=== PATIENT | male | born 2000 | race Hispanic/Latino ===

== ENCOUNTER 2019-04-30 08:35 | Emergency (ER) | payer OTHER, SELFPAY ==
--- NOTE | 2019-04-30 10:08 | EDPHYS ---
Physician Documentation [facility] Name: Fuentes Ochoa Age: 18 yrs Sex: Male : 2000 Arrival Date: 04/30/2019 Time: 08:38 Bed 7 Private MD: ED Physician Eric Forbes HPI: 04/30 09:46 This 18 yrs old Male presents to ER via Ambulatory with complaints of Shoulder kb Pain. 09:46 The patient or guardian complains of decreased range of motion, pain, that is acute. kb right shoulder. Context: The problem was sustained outdoors, resulted from "I was play fighting and swung too hard.", The patient experiences decreased range of motion, when attempts to raise arm, The patient reports no obvious deformity. Onset: The symptoms/episode began/occurred yesterday. Modifying factors: the symptoms are alleviated by nothing. The symptoms are aggravated by movement. Associated signs and symptoms: The patient has no apparent associated signs or symptoms. Severity of symptoms: At their worst the symptoms were moderate, in the emergency department the symptoms are unchanged. Treatment prior to arrival includes: no previous treatment. The patient has not experienced similar symptoms in the past. The patient has not recently seen a physician. Historical: - Allergies: 09:01 No Known Allergies; ph - Home Meds: 09:01 None [Active]; ph - PMHx: 09: None; ph - PSHx: 09:01 None; ph - Immunization history:: Adult Immunizations up to date. - Social history:: Smoking status: Patient uses tobacco products, smokes one-half pack cigarettes per day. - Ebola Screening: : No symptoms or risks identified at this time. ROS: 09:43 Constitutional: Negative for fever, chills, and weight loss, Cardiovascular: Negative kb for chest pain, palpitations, and edema, Respiratory: Negative for shortness of breath, cough, wheezing, and pleuritic chest pain, Abdomen/GI: Negative for abdominal pain, nausea, vomiting, diarrhea, and constipation, Back: Negative for injury and pain, : Negative for injury, bleeding, discharge, and swelling, Skin: Negative for injury, rash, and discoloration, Neuro: Negative for headache, weakness, numbness, tingling, and seizure. 09:43 MS/extremity: Positive for decreased range of motion, pain, of the anterior aspect of right shoulder. Exam: 09:43 Constitutional: This is a well developed, well nourished patient who is awake, alert, kb and in no acute distress. Head/Face: Normocephalic, atraumatic. Chest/axilla: Normal chest wall appearance and motion. Nontender with no deformity. No lesions are appreciated. Cardiovascular: Regular rate and rhythm with a normal S1 and S2. No gallops, murmurs, or rubs. Normal PMI, no JVD. No pulse deficits. Respiratory: Lungs have equal breath sounds bilaterally, clear to auscultation and percussion. No rales, rhonchi or wheezes noted. No increased work of breathing, no retractions or nasal flaring. Abdomen/GI: Soft, non-tender, with normal bowel sounds. No distension or tympany. No guarding or rebound. No evidence of tenderness throughout. Skin: Warm, dry with normal turgor. Normal color with no rashes, no lesions, and no evidence of cellulitis. Neuro: Awake and alert, GCS 15, oriented to person, place, time, and situation. Cranial nerves II-XII grossly intact. Motor strength 5/5 in all extremities. Sensory grossly intact. Cerebellar exam normal. Normal gait. 09:43 Musculoskeletal/extremity: Extremities: grossly normal except: noted in the anterior aspect of right shoulder: decreased ROM, pain, noted in the right upper arm: tenderness, ROM: limited active range of motion due to pain, in the anterior aspect of right shoulder, Circulation is intact in all extremities. Sensation intact. Vital Signs: 08:58 BP 164 / 93; Pulse 78; Resp 18; Temp 98.6; Pulse Ox 98% on R/A; Weight 124.74 kg; ph Height 5 ft. 6 in. (167.64 cm); Pain 10/10; 10:00 BP 147 / 89; Pulse 74; Resp 18; Temp 97.8; Pulse Ox 99% on R/A; ph 08:58 Body Mass Index 44.39 (124.74 kg, 167.64 cm) ph MDM: 08:44 Patient medically screened. kb 09:45 Data reviewed: vital signs, nurses notes. Data interpreted: Pulse oximetry: on room air kb is 98 %. Interpretation: normal. Test interpretation: by ED physician or midlevel provider: plain radiologic studies, neg. Counseling: I had a detailed discussion with the patient and/or guardian regarding: the historical points, exam findings, and any diagnostic results supporting the discharge/admit diagnosis, radiology results, the need for outpatient follow up, a family practitioner, to return to the emergency department if symptoms worsen or persist or if there are any questions or concerns that arise at home. 04/30 08:46 Order name: Humerus Right XRAY kb 04/30 08:46 Order name: Shoulder Right (2 View) XRAY kb 04/30 10:08 Order name: Sling; Complete Time: 10:16 kb Administered Medications: No medications were administered Disposition: 04/30/19 10:07 Discharged to Home. Impression: Pain in right shoulder. - Condition is Stable. - Discharge Instructions: Shoulder Pain, [id number]. - Prescriptions for Cyclobenzaprine 10 mg Oral Tablet - take 1 tablet by ORAL route every 8 hours As needed; 21 tablet. - Medication Reconciliation Form, Thank You Letter, Antibiotic Education, Prescription Opioid Use form. - Follow up: Emergency Department; When: As needed; Reason: Worsening of condition. Follow up: Private Physician; When: 2 - 3 days; Reason: Recheck today's complaints, Continuance of care, Re-evaluation by your physician. Addendum: 05/04/2019 02:10 Co-signature as Attending Physician, Eric Forbes MD. m a2 Signatures: Dispatcher [employer] EDME Akila Ortiz, DIDI-C DIDI-Naomi Martin RN RN Eric Davila MD MD va2 Corrections: (The following items were deleted from the chart) 04/30 09:45 09:43 Musculoskeletal/extremity: Extremities: grossly normal except: noted in the kb anterior aspect of right shoulder: decreased ROM, pain, noted in the right upper arm: tenderness, kb 10:25 10:07 04/30/2019 10:07 Discharged to Home. Impression: Pain in right shoulder. ph Condition is Stable. Forms are Medication Reconciliation Form, Thank You Letter, Antibiotic Education, Prescription Opioid Use. Follow up: Emergency Department; When: As needed; Reason: Worsening of condition. Follow up: Private Physician; When: 2 - 3 days; Reason: Recheck today's complaints, Continuance of care, Re-evaluation by your physician. kb
--- NOTE | 2019-04-30 10:08 | ER ---
Nurse's Notes [facility] Name: Fuentes Ochoa Age: 18 yrs Sex: Male : 2000 Arrival Date: 04/30/2019 Time: 08:38 Bed 7 Private MD: Diagnosis: Pain in right shoulder Presentation: 04/30 08:49 Presenting complaint: Patient states: " I was "play fighting" last night and I guess I ph was swinging my arm too much. When I woke up this morning my shoulder was really sore." C/O pain to R shoulder, CMS intact, reports limited ROM. Transition of care: patient was not received from another setting of care. Onset of symptoms was April 30, 2019. Risk Assessment: Do you want to hurt yourself or someone else? Patient reports no desire to harm self or others. Initial Sepsis Screen: Does the patient meet any 2 criteria? No. Patient's initial sepsis screen is negative. Does the patient have a suspected source of infection? No. Patient's initial sepsis screen is negative. Care prior to arrival: Medication(s) given: Tylenol, 1000 mg, 30 min DRAWER WAXER. 08:49 Method Of Arrival: Ambulatory ph 08:49 Acuity: NAYELY 4 ph Historical: - Allergies: 09:01 No Known Allergies; ph - Home Meds: 09:01 None [Active]; ph - PMHx: 09:01 None; ph - PSHx: 09:01 None; ph - Immunization history:: Adult Immunizations up to date. - Social history:: Smoking status: Patient uses tobacco products, smokes one-half pack cigarettes per day. - Ebola Screening: : No symptoms or risks identified at this time. Screenin:03 Abuse screen: Denies threats or abuse. Denies injuries from another. Nutritional ph screening: No deficits noted. Tuberculosis screening: No symptoms or risk factors identified. Fall Risk None identified. Assessment: 09:15 General: Appears in no apparent distress. comfortable, obese, well groomed, Behavior is ph calm, cooperative, appropriate for age. Pain: Complains of pain in right shoulder and right upper arm Pain currently is 10 out of 10 on a pain scale. Neuro: Level of Consciousness is awake, alert, obeys commands, Oriented to person, place, time, situation. Cardiovascular: Capillary refill < 3 seconds in bilateral fingers Patient's skin is warm and dry. Pulses are palpable in right radial artery and left radial artery. Respiratory: Airway is patent Respiratory effort is even, unlabored, Respiratory pattern is regular, symmetrical. Derm: Skin is intact, is healthy with good turgor, Skin is pink, warm \\T\\ dry. Musculoskeletal: Circulation, motion, and sensation intact. Range of motion: intact in all extremities, Swelling absent no deformity noted. Vital Signs: 08:58 BP 164 / 93; Pulse 78; Resp 18; Temp 98.6; Pulse Ox 98% on R/A; Weight 124.74 kg; ph Height 5 ft. 6 in. (167.64 cm); Pain 10/10; 10:00 BP 147 / 89; Pulse 74; Resp 18; Temp 97.8; Pulse Ox 99% on R/A; ph 08:58 Body Mass Index 44.39 (124.74 kg, 167.64 cm) ph ED Course: 08:38 Patient arrived in ED. rg4 08:44 Akila Ortiz FNP-C is PHCP. kb 08:44 Eric Forbes MD is Attending Physician. kb 08:57 Triage completed. ph 09:02 Arm band placed on Patient placed in an exam room, on a stretcher, on pulse oximetry. ph 09:03 Patient has correct armband on for positive identification. Pulse ox on. NIBP on. Door ph closed. Noise minimized. Head of bed elevated. 09:34 X-ray completed. Portable x-ray completed in exam room. tm4 09:46 Humerus Right XRAY In Process Unspecified. EDMS 09:46 Shoulder Right (2 View) XRAY In Process Unspecified. EDMS 10:14 Naomi Hou, RN is Primary Nurse. ph 10:23 No provider procedures requiring assistance completed. Patient did not have IV access ph during this emergency room visit. Sling applied to right arm. Administered Medications: No medications were administered Outcome: 10:07 Discharge ordered by . kb 10:25 Patient left the ED. ph 10:25 Discharged to home ambulatory, with family. ph 10:25 Condition: good 10:25 Discharge instructions given to patient, family, Instructed on discharge instructions, follow up and referral plans. no drinking with medication, no driving heavy equipment, medication usage, Demonstrated understanding of instructions, follow-up care, medications, Prescriptions given X 1. Signatures: Dispatcher [employer] Akila Noguera, ISMAELC LEATHER FITTER-Mary Garcia tm4 Naomi Hou RN RN Marilu Pardo rg4
[2019-04-30 10:37] VITALS: BP 164/93; TEMP 98.6; O2SAT 98
--- NOTE | 2019-04-30 10:49 | RAD REPORT ---
EXAM DESCRIPTION: Shoulder Right 2 View - 04/30/2019 9:46 am COMPARISON: Right shoulder pain following trauma TECHNIQUE: Internal and external rotation views of the right shoulder were obtained. FINDINGS: There is no fracture or dislocation. AC joint is normal in appearance. No acute or suspic ious findings. IMPRESSION: Negative two-view right shoulder examination.
--- NOTE | 2019-04-30 10:50 | RAD REPORT ---
EXAM DESCRIPTION: RAD - Humerus Right - 04/30/2019 9:46 am CLINICAL HISTORY: Right arm pain following trauma COMPARISON: None. FINDINGS: No fracture is identified. There is no dislocation or periosteal reaction noted. No foreig n body or other soft tissue abnormality. IMPRESSION: Negative right humerus examination.
== END 2019-04-30 10:25 | disposition home or self-care (01) ==
LOC: ER 08:35
DX: M25.511 Pain in right shoulder (principal); F17.210 Nicotine dependence, cigarettes, uncomplicated
CPT/HCPCS: 99284

== ENCOUNTER 2021-11-07 17:23 | Emergency (ER) | payer SELFPAY ==
--- OUTSIDE RECORDS SUMMARY | 2021-11-07 17:26 | XMS REPORT | Continuity of Care Document ---
:2000 Author Organization [facility] t Address [facility] [address]. Gupta [address] [place] [id number] Care Team Providers Name Role Phone Jihan Buckner Primary Care Physician Nasir GILMORE Attending Clinician Unavailable Nasir Ewing Attending Clinician Problems Condition Condition Condition Status Onset Resolution Last Treating Co mments Source Name Details Category Date Date Treatment Clinician Date No known No known Disease Unive rs active active ity of problems problems [facility] Allergies, Adverse Reactions, Alerts Allergy Allergy Status Severity Reaction(s) Onset Inactive Treating Comm ents Source Name Type Date Date Clinician NO KNOWN Drug Active Univers ALLERGIE Class ity of S [facility] Social History Social Habit Start Date Stop Date Quantity Comments Source Exposure to Not sure [facility] SARS-CoV-2 (event) Medica l Branch Alcohol intake 2014-07-23 2014-07-23 [facility] 00:00:00 00:00:00 [facility] Sex Assigned At [birth year] [facility] 00:00:00 00:00:00 [facility] Smoking Status Start Date Stop Date Source Never smoker [facility] Medications Ordered Filled Start Stop Current Ordering Indication Dosage Frequency Signature Comments Components Source Medication Medication Date Date Medication? Clinician (SIG) Name Name lidocaine 2020-10- No 5mL 5 mL, Univer s 1% 11-20 Infiltrati ity of (XYLOCAINE) 02:30: 01:25 on, ONCE, [place] 10 mg/mL (1 00 :00 1 dose, On Me dical %) Fri Branch injection 5 09/19/ mL at 2030, JOHN cephALEXin 2020-10- Yes [id number] 500mg Take 1 Univers 500 mg 11-19 [id number] capsule by ity of capsule 00:00: 05:59 mouth 4 [place] 00 :00 (four) Medical times [place] daily for 5 days. amLODIPine 2013-10 Yes TAKE 1 Unive rs (NORVASC) 2-16 TABLET BY ity o f 2.5 mg 00:00: MOUTH [place] tablet 00 EVERY DAY Medical Branch ALBUTEROL Yes Inhale. Unive rs INHALE 07-23 ity of 09:52: [place] 54 Medical Branch tretinoin Yes [id number] Apply to Univers (RETIN-A) 07-23 affected ity of 0.05 % 00:00: area(s) at [place] cream 00 bedtime. Medical Branch tretinoin Yes [id number] Apply to Univers (RETIN-A) 05-21 affected ity of 0.025 % 00:00: area(s) at [facility] s cream 00 bedtime. [facility] Immunizations Ordered Filled Immunization Date Status Comments [facility] e Immunization Name Name Td 2021-09-19 Completed University of 00:00:00 [facility] Vital Signs Vital Name Observation Time Observation Value Comments Source Systolic blood 2021-09-20 01:14:00 183 mm[Hg] Univer sity of pressure [facility] Diastolic blood 2021-09-20 01:14:00 80 mm[Hg] [facility] ity [facility] Heart rate 2021-09-20 01:14:00 75 /min [facility] Body temperature 2021-09-20 01:14:00 37.5 [facility] Respiratory rate 2021-09-20 01:14:00 18 /min [facility] Body height 2021-09-20 01:14:00 167.6 cm [facility] Body weight 2021-09-20 01:14:00 127.007 kg [facility] BMI 2021-09-20 01:14:00 45.19 kg/m2 [facility] Oxygen saturation in 2021-09-20 01:14:00 100 /min [facility] Arterial blood by [facility] Pulse oximetry Branch Procedures Procedure Date / Time Performed Performing Clinician Javier christianson NOTICE OF PRIVACY 2021-09-20 01:25:29 Doctor Unassigned, No Univ [facility] PRACTICES Name Medical Branch CONSENT/REFUSAL FOR 2021-09-20 00:47:44 [facility] Name [facility] Branch TREATMENT Encounters Start End Encounter Admission Attending Care Care Encounter Source Date/Time Date/Time Type Type Clinicians Facility Department ID 2021-09-19 2021-09-19 Emergency X [facility] ERT [id number] Univers 19:20:00 20:45:00 JOSSIE paige of [facility] 2021-09-19 2021-09-19 Emergency [facility] [id number] Univers 19:20:00 20:45:00 Jossie SANTOYO [id number] i ty of [place] [id number] [facility] [id number] [facility] 084 Branch Results This patient has no known results.
[2021-11-07] MEDS ORDERED: BUPIVACAINE 0.5% PF 10 ML VIAL ONE (18:40)
[2021-11-07] MEDS ORDERED: LIDOCAINE 1% MPF 5 ML VIAL ONE (18:41)
--- NOTE | 2021-11-07 20:29 | RAD REPORT ---
EXAM DESCRIPTION: CR - Finger-Thumb Left - 11/07/2021 8:21 pm CLINICAL HISTORY: Laceration FINDINGS: No fracture or dislocation seen. A radiopaque foreign body is not visualized
--- NOTE | 2021-11-07 20:54 | ER ---
Nurse's Notes [facility] Name: Fuentes Ochoa Age: 21 yrs Sex: Male : 2000 Arrival Date: 11/07/2021 Time: 17:26 Bed 10 Private MD: Diagnosis: Laceration without foreign body of left middle finger without damage to nail Presentation: 11/07 17:47 Chief complaint: Patient states: cutting vegetables at work and cut Left middle finger vg1 with a knife. Coronavirus screen: Vaccine status: Patient reports receiving the 2nd dose of the covid vaccine. Client denies travel out of the [place] in the last 14 days. Ebola Screen: Patient negative for fever greater than or equal to 101.5 degrees Fahrenheit, and additional compatible Ebola Virus Disease symptoms. Initial Sepsis Screen: Does the patient meet any 2 criteria? No. Patient's initial sepsis screen is negative. Does the patient have a suspected source of infection? No. Patient's initial sepsis screen is negative. Risk Assessment: Do you want to hurt yourself or someone else? Patient reports no desire to harm self or others. Onset of symptoms was November 07, 2021. 17:47 Method Of Arrival: Ambulatory vg1 17:47 Acuity: NAYELY 4 vg1 Triage Assessment: 17:54 General: Appears in no apparent distress. uncomfortable, Behavior is calm, cooperative. vg1 Pain: Complains of pain in palmar aspect of distal phalanx of left middle finger. Musculoskeletal: Circulation, motion, and sensation intact. Injury Description: Laceration sustained to palmar aspect of distal phalanx of left middle finger is bleeding moderately. Historical: - Allergies: 17:54 No Known Allergies; vg1 - Immunization history:: Client reports receiving the 2nd dose of the Covid vaccine. - Social history:: Smoking status: Patient reports the use of cigarette tobacco products, smokes one-half pack cigarettes per day. Screenin:11 Abuse screen: Denies threats or abuse. Denies injuries from another. Nutritional ab2 screening: No deficits noted. Tuberculosis screening: No symptoms or risk factors identified. Fall Risk None identified. Assessment: 18:08 General: Appears in no apparent distress. comfortable, Behavior is calm, cooperative. ab2 Pain: Complains of pain in palmar aspect of distal phalanx of left index finger Pain currently is 9 out of 10 on a pain scale. Neuro: Level of Consciousness is awake, alert, obeys commands, Oriented to person, place, time, situation, Appropriate for age [employer] [employer] are equal bilaterally Moves all extremities. Gait is steady, Speech is normal. Cardiovascular: No deficits noted. Reports Denies chest pain, shortness of breath. Respiratory: Airway is patent Breath sounds are clear bilaterally. GI: No deficits noted. No signs and/or symptoms were reported involving the gastrointestinal system. : No deficits noted. No signs and/or symptoms were reported regarding the genitourinary system. EENT: No deficits noted. No signs and/or symptoms were reported regarding the EENT system. Derm: No deficits noted. No signs and/or symptoms reported regarding the dermatologic system. Musculoskeletal: No deficits noted. No signs and/or symptoms reported regarding the musculoskeletal system. Injury Description: Laceration sustained to palmar aspect of distal phalanx of left index finger. Vital Signs: 17:47 BP 175 / 99; Pulse 76; Resp 18; Temp 98.4; Pulse Ox 100% ; Pain 7/10; vg1 19:00 BP 141 / 82; Pulse 86; Resp 17; Pulse Ox 99% ; ab2 20:01 BP 154 / 79; Pulse 81; Resp 16; Pulse Ox 99% on R/A; ab2 ED Course: 17:26 Patient arrived in ED. ds1 17:54 Triage completed. vg1 17:54 Arm band placed on. vg1 18:01 Pratik Spencer PA is PHCP. cp 18:01 Pk Barroso MD is Attending Physician. cp 18:08 Se Hennessy is Primary Nurse. ab2 18:11 Patient has correct armband on for positive identification. Call light in reach. Side ab2 rails up X2. 18:11 No provider procedures requiring assistance completed. ab2 20:22 XRAY Finger-Thumb Left: left middle In Process Unspecified. EDMS 21:09 Patient did not have IV access during this emergency room visit. ab2 Administered Medications: 19:59 Drug: Lidocaine (1 %) 5 ml {Note: Given by ARACELIS Spencer during sutures.} Volume: 5 ml; ab2 Route: Infiltration; 19:59 Drug: Marcaine (bupivacaine) (0.5 %) 5 ml {Note: Given by ARACELIS Spencer during sutures.} ab2 Volume: 10 ml; Route: Infiltration; Outcome: 20:53 Discharge ordered by . ying 21: Discharged to home ambulatory. ab2 21: Condition: stable 21: Discharge instructions given to patient, Instructed on discharge instructions, follow up and referral plans. Demonstrated understanding of instructions, follow-up care. 21:09 Patient left the ED. ab2 Signatures: Dispatcher [employer] [facility] Kaycee Grace ds1 Pratik Spencer PA PA cp Garcia, Victoria, RN RN vg1 Se Hennessy ab2
--- NOTE | 2021-11-07 20:54 | EDPHYS ---
Physician Documentation [facility] Name: Fuentes Ochoa Age: 21 yrs Sex: Male : 2000 Arrival Date: 11/07/2021 Time: 17:26 Bed 10 Private MD: ED Physician Pk Barroso HPI: 11/07 18:45 This 21 yrs old Male presents to ER via Ambulatory with complaints of Finger cp Injury - Lac. Historical: - Allergies: 17:54 No Known Allergies; vg1 - Immunization history:: Client reports receiving the 2nd dose of the Covid vaccine. - Social history:: Smoking status: Patient reports the use of cigarette tobacco products, smokes one-half pack cigarettes per day. ROS: 18:50 Skin: Positive for laceration(s), of the hi side distal phalanx left middle finger. cp 18:50 Constitutional: Negative for fever. cp 18:50 MS/extremity: Negative for paresthesias. 18:50 All other systems are negative. Exam: 19:00 Constitutional: The patient appears in no acute distress, alert, awake, well developed, cp well nourished. 19:00 Musculoskeletal/extremity: ROM: full active range of motion, in the left middle finger, cp the left middle finger Sensation intact. Tendon exam: specific tendon testing normal through active and passive range of motion 19:00 Skin: injury, laceration(s), the wound is approximately 3 cm(s), of the hi side distal phalanx left middle finger, that can be described as no foreign body, irregular, with moderate bleeding. Vital Signs: 17:47 BP 175 / 99; Pulse 76; Resp 18; Temp 98.4; Pulse Ox 100% ; Pain 7/10; vg1 19:00 BP 141 / 82; Pulse 86; Resp 17; Pulse Ox 99% ; ab2 20:01 BP 154 / 79; Pulse 81; Resp 16; Pulse Ox 99% on R/A; ab2 Laceration: 20:50 Wound Repair of 3cm ( 1.2in ) subcutaneous laceration to hi side distal phalanx cp left middle finger. Irregularly shaped.. Distal neuro/vascular/tendon intact. Anesthesia: Digital block administered with 6 mls of Lido/Marcaine. Wound prep: Moderate cleansing by me, Wound irrigation by me. Skin closed with 7 5-0 Prolene using interrupted sutures and sterile technique. Dressed with Bacitracin, 4x4's. Patient tolerated well. MDM: 18:03 Patient medically screened. cp 20:00 Differential diagnosis: open fracture, tendon injury, simple laceration. cp 20:53 Data reviewed: vital signs, nurses notes, radiologic studies, plain films. cp 20:53 Test interpretation: by ED physician or midlevel provider: plain radiologic studies. cp Counseling: I had a detailed discussion with the patient and/or guardian regarding: the historical points, exam findings, and any diagnostic results supporting the discharge/admit diagnosis, radiology results. Response to treatment: the patient's symptoms have markedly improved after treatment, and as a result, I will discharge patient. 11/07 20:07 Order name: XRAY Finger-Thumb Left: left middle; Complete Time: 20:52 cp 11/07 20:52 Interpretation: Report reviewed. cp 11/07 18:35 Order name: Dressing - Wound cp 11/07 18:35 Order name: Gloves, Sterile cp 11/07 18:35 Order name: Setup Suture Tray; Complete Time: 18:56 cp 11/07 20:51 Order name: Finger Splint cp 11/07 20:51 Order name: Dressing - Wound cp Administered Medications: 19:59 Drug: Lidocaine (1 %) 5 ml {Note: Given by ARACELIS Spencer during sutures.} Volume: 5 ml; ab2 Route: Infiltration; 19:59 Drug: Marcaine (bupivacaine) (0.5 %) 5 ml {Note: Given by ARACELIS Spencer during sutures.} ab2 Volume: 10 ml; Route: Infiltration; Disposition: 21:00 Chart complete. cp Disposition Summary: 11/07/21 20:53 Discharge Ordered Location: Home cp Problem: new cp Symptoms: have improved cp Condition: Stable cp Diagnosis - Laceration without foreign body of left middle finger without damage to nail cp Followup: cp - With: Private Physician - When: 10 - 14 days - Reason: Staple/Suture removal Discharge Instructions: - Discharge Summary Sheet cp - Laceration Care, Adult cp - Sutured Wound Care cp Forms: - Medication Reconciliation Form cp - Thank You Letter cp - Antibiotic Education cp - Prescription Opioid Use cp Addendum: 11/09/2021 07:06 Co-signature as Attending Physician, Pk Barroso MD I agree with the assessment and k dr plan of care. Signatures: Dispatcher [employer] EDTN Pk Barroso MD MD [facility] Pratik Spencer PA PA cp Garcia, Victoria, RN RN vg1 Se Hennessy2 Corrections: (The following items were deleted from the chart) 11/08 17:15 11/07 20:00 Wound Repair of 3cm ( 1.2in ) subcutaneous laceration to hi side distal cp phalanx left middle finger. Irregularly shaped.. Distal neuro/vascular/tendon intact. Anesthesia: Digital block administered with 6 mls of Lido/Marcaine. Wound prep: Moderate cleansing by me, Wound irrigation by me. Skin closed with 7 5-0 Prolene using interrupted sutures and sterile technique. Dressed with Bacitracin, 4x4's. Patient tolerated well. cp
[2021-11-07 21:15] VITALS: TEMP 98.4
[2021-11-07 21:16] VITALS: O2SAT 99
[2021-11-07 21:18] VITALS: BP 154/79
== END 2021-11-07 21:09 | disposition home or self-care (01) ==
LOC: ER 17:23
PROC: 0JQK0ZZ Repair Left Hand Subcutaneous Tissue and Fascia, Open Approach (ICD-10-PCS; principal; 2021-11-07)
DX: S61.213A Laceration without foreign body of left middle finger without damage to nail, initial encounter (principal); F17.210 Nicotine dependence, cigarettes, uncomplicated
CPT/HCPCS: 99283

== ENCOUNTER 2022-09-09 13:18 | Emergency (ER) | payer SELFPAY ==
--- OUTSIDE RECORDS SUMMARY | 2022-09-09 13:21 | XMS REPORT | Continuity of Care Document ---
:2000 Author Organization [facility] t Address [address] [place] [address] Dr. Gupta [address] [place] [address] Care Team Providers Name Role Phone Joanna Buckner Primary Care Physician JOSSIE GILMORE Attending Clinician Unavailable Jossie Ewing Attending Clinician Problems Condition Condition Condition Status Onset Resolution Last Treating Co mments Source Name Details Category Date Date Treatment Clinician Date No known No known Disease Unive rs active active ity of problems problems [facility] Allergies, Adverse Reactions, Alerts Allergy Allergy Status Severity Reaction(s) Onset Inactive Treating Comm ents Source Name Type Date Date Clinician NO KNOWN Drug Active Univers ALLERGIE Class ity of S [facility] Social History Social Habit Start Date Stop Date Quantity Comments Source Exposure to Not sure [facility] SARS-CoV-2 (event) Medica l Branch Alcohol intake 2014-07-23 2014-07-23 [facility] 00:00:00 00:00:00 [facility] Sex Assigned At [birth year] [facility] 00:00:00 00:00:00 [facility] Smoking Status Start Date Stop Date Source Never smoker [facility] Medications Ordered Filled Start Stop Current Ordering Indication Dosage Frequency Signature Comments Components Source Medication Medication Date Date Medication? Clinician (SIG) Name Name lidocaine 2020-10- No 5mL 5 mL, Univer s 1% 1-27 11-27 Infiltrati ity of (XYLOCAINE) 02:30: 01:25 on, ONCE, [place] 10 mg/mL (1 00 :00 1 dose, On Me dical %) Fri Branch injection 5 09/19/ mL at 2030, JOHN cephALEXin 2020-10- No [id number] 500mg Take 1 Univers 500 mg 11-19 [id number] capsule by ity of capsule 00:00: 05:59 mouth 4 [place] 00 :00 (four) Medical times Branch daily for 5 days. amLODIPine 2013-10 Yes TAKE 1 Unive rs (NORVASC) 2-16 TABLET BY ity o f 2.5 mg 00:00: MOUTH [place] tablet 00 EVERY DAY Medical Branch ALBUTEROL Yes Inhale. Unive rs INHALE 07-23 ity of 09:52: [place] 54 Medical Branch tretinoin Yes [id number] Apply to Univers (RETIN-A) 07-23 affected ity of 0.05 % 00:00: area(s) at [place] cream 00 bedtime. Medical Branch tretinoin Yes [id number] Apply to Univers (RETIN-A) 05-21 affected ity of 0.025 % 00[facility] Immunizations Ordered Filled Immunization Date Status Comments [facility] e Immunization Name Name Td 2021-09-19 Completed University 00:00:00 [facility] Vital Signs Vital Name Observation Time Observation Value Comments Source Systolic blood 2021-09-20 01:14:00 183 mm[Hg] Univer sity of pressure [facility] Diastolic blood 2021-09-20 01:14:00 80 mm[Hg] Unive rsity of pressure [facility] Heart rate 2021-09-20 01:14:00 75 /min [facility] Body temperature 2021-09-20 01:14:00 37.5 [facility] 2021-09-20 01:14:00 18 /min [facility] Body height 2021-09-20 01:14:00 167.6 cm [facility] Body weight 2021-09-20 01:14:00 127.007 kg [facility] BMI 2021-09-20 01:14:00 45.19 kg/m2 Universi ty of [facility] Oxygen saturation in 2021-09-20 01:14:00 100 /min University Arterial blood by [facility] Pulse oximetry Branch Procedures Procedure Date / Time Performed Performing Clinician Sourc e NOTICE OF PRIVACY 2021-09-20 01:25:29 Doctor Unassigned, No Univ [facility] PRACTICES Name Medical Branch CONSENT/REFUSAL FOR 2021-09-20 00:47:44 [facility], [facility] AND Name Medical Branch TREATMENT Encounters Start End Encounter Admission Attending Care Care Encounter Source Date/Time Date/Time Type Type Clinicians Facility Department ID 2021-09-19 2021-09-19 Emergency X [facility] ERT [id number] Univers 19:20:00 20:45:00 JOSSIE paige of [facility] 2021-09-19 2021-09-19 Emergency [facility] [id number] Univers 19:20:00 20:45:00 Jossie SANTOYO [id number] i ty [facility] [id number] [facility] [id number] [facility] 084 Branch Results This patient has no known results.
--- NOTE | 2022-09-09 13:31 | EDPHYS ---
Physician Documentation [facility] Name: Fuentes Ochoa Age: 21 yrs Sex: Male : 2000 Arrival Date: 09/09/2022 Time: 13:19 Bed Waiting Private MD: ANDREW Physician Pratik Loza HPI: 09/09 14:03 This 21 yrs old Male presents to ER via Ambulatory with complaints of High kb Blood Pressure, Nose Bleed. 14:03 The patient has elevated blood pressure and discovered this "felt like it was high". kb Onset: The symptoms/episode began/occurred 2 week(s) ago. Associated signs and symptoms: Pertinent positives: headache. Severity of symptoms: At its worst the blood pressure was moderate. The patient has not experienced similar symptoms in the past. Pt states he has a history of hypertension, but stopped taking his meds about 4 years ago. states he hasn't followed up since then. Started having intermittent nosebleeds and headache 2 weeks ago and reports that is what was happening when his blood pressure was up in the past so he knows that is the problem now. States he was sent home from work on Wednesday for a headache. Denies any symptoms at this time. States "I came in today because I overslept and missed work so I need a note.". Historical: - Allergies: 13:27 No Known Drug Allergies; ll1 - PMHx: 13:27 Hypertensive disorder; ll1 - PSHx: 13:27 None; ll1 - Social history:: Smoking status: Patient denies any tobacco usage or history of. ROS: 14:02 Constitutional: Negative for fever, chills, and weight loss. kb 14:02 All other systems are negative. Exam: 14:02 Constitutional: This is a well developed, well nourished patient who is awake, alert, kb and in no acute distress. Head/Face: Normocephalic, atraumatic. ENT: Moist Mucous membranes Cardiovascular: Regular rate and rhythm with a normal S1 and S2. No gallops, murmurs, or rubs. No pulse deficits. Respiratory: Respirations even and unlabored. No increased work of breathing. Talking in full sentences Abdomen/GI: Soft, non-tender. No distention Skin: Warm, dry with normal turgor. Normal color. MS/ Extremity: Pulses equal, no cyanosis. Neurovascular intact. Full, normal range of motion. Neuro: Awake and alert, GCS 15, oriented to person, place, time, and situation. Moves all extremities. Normal gait. Vital Signs: 13:24 BP 158 / 79; Pulse 75; Resp 17; Temp 97.8; Pulse Ox 98% ; Pain 0/10; ll1 MDM: 13:30 Patient medically screened. kb 14:02 Data reviewed: vital signs, nurses notes. Data interpreted: Pulse oximetry: on room air kb is 98 %. Interpretation: normal. Counseling: I had a detailed discussion with the patient and/or guardian regarding: the historical points, exam findings, and any diagnostic results supporting the discharge/admit diagnosis, the need for outpatient follow up, a family practitioner, to return to the emergency department if symptoms worsen or persist or if there are any questions or concerns that arise at home. Administered Medications: No medications were administered Disposition: 09/10 09:28 Co-signature as Attending Physician, Pratik Loza MD I agree with the assessment and leia plan of care. Disposition Summary: 09/09/22 13:30 Discharge Ordered Location: Home kb Condition: Stable kb Diagnosis - Essential (primary) hypertension kb Followup: kb - With: Emergency Department - When: As needed - Reason: Worsening of condition Followup: kb - With: Private Physician - When: 2 - 3 days - Reason: Recheck today's complaints, Continuance of care, Re-evaluation by your physician Discharge Instructions: - Hypertension, Adult, [id number] kb - How to Take Your Blood Pressure, [id number] kb - Discharge Summary Sheet ll1 Forms: - Medication Reconciliation Form kb - Work release form ll1 - Thank You Letter kb - Antibiotic Education kb - Prescription Opioid Use kb Prescriptions: - Hydrochlorothiazide 25 mg Oral Tablet - take 1 tablet by ORAL route once daily .; 30 tablet; Refills: 0, Product kb Selection Permitted Signatures: Akila Ortiz, DIDI-Isaac TOLBERT-Pratik Kincaid MD MD cha Lewis, Lynsay, RN RN ll1
--- NOTE | 2022-09-09 13:31 | ER ---
Nurse's Notes [facility] Name: Fuentes Ochoa Age: 21 yrs Sex: Male : 2000 Arrival Date: 09/09/2022 Time: 13:19 Bed Waiting Private MD: Diagnosis: Essential (primary) hypertension Presentation: 09/09 13:24 Chief complaint: Patient states: BRADSHAW and nose bleeds for the past two weeks. States he ll1 knows he has high BP, but doesn't take meds for past 4 years. Coronavirus screen: Vaccine status: Client denies travel out of the [place] in the last 14 days. At this time, the client does not indicate any symptoms associated with coronavirus-19. Ebola Screen: Patient denies travel to an Ebola-affected area in the 21 days before illness onset. Initial Sepsis Screen: Does the patient meet any 2 criteria? No. Patient's initial sepsis screen is negative. Does the patient have a suspected source of infection? No. Patient's initial sepsis screen is negative. Risk Assessment: Do you want to hurt yourself or someone else? Patient reports no desire to harm self or others. Onset of symptoms was August 26, 2022. 13:24 Method Of Arrival: Ambulatory ll1 13:24 Acuity: NAYELY 4 ll1 Triage Assessment: 13:27 General: Appears in no apparent distress. Behavior is calm, cooperative, appropriate ll1 for age. Pain: Complains of pain in head Quality of pain is described as aching. Neuro: Reports headache nose bleeds. Historical: - Allergies: 13:27 No Known Drug Allergies; ll1 - PMHx: 13:27 Hypertensive disorder; ll1 - PSHx: 13:27 None; ll1 - Social history:: Smoking status: Patient denies any tobacco usage or history of. Screenin:46 Abuse screen: Denies threats or abuse. Nutritional screening: No deficits noted. ll1 Tuberculosis screening: No symptoms or risk factors identified. Fall Risk Total Mccabe Fall Scale indicates No Risk (0-24 pts). Assessment: 13:45 Reassessment: No changes from previously documented assessment. Patient and/or family ll1 updated on plan of care and expected duration. Pain level reassessed. Patient is alert, oriented x 3, equal unlabored respirations, skin warm/dry/pink. Vital Signs: 13:24 BP 158 / 79; Pulse 75; Resp 17; Temp 97.8; Pulse Ox 98% ; Pain 0/10; ll1 ED Course: 13:19 Patient arrived in ED. am2 13:27 Triage completed. ll1 13:27 Arm band placed on. ll1 13:30 Akila Ortiz FNP-C is [facility]. kb 13:30 Pratik Loza MD is Attending Physician. kb 13:52 Patient has correct armband on for positive identification. Bed in low position. Call ll1 light in reach. Side rails up X 1. Cardiac monitoring not applicable on this patient. 13:52 No provider procedures requiring assistance completed. Patient did not have IV access ll1 during this emergency room visit. Administered Medications: No medications were administered Medication: 13:52 VIS not applicable for this client. ll1 Outcome: 13:30 Discharge ordered by . kb 13:46 Patient left the ED. ll1 13:46 Discharged to home ambulatory. ll1 13:46 Condition: stable 13:46 Discharge instructions given to patient, Instructed on discharge instructions, follow up and referral plans. Demonstrated understanding of instructions, follow-up care, medications, Prescriptions given X 1. Signatures: Akila Ortiz FNP-C [employer]-Letha Pagan am2 Azeem Viera RN RN ll1 Corrections: (The following items were deleted from the chart) 13:29 13:24 Acuity: NAYELY 3 ll1 ll1
[2022-09-09 14:11] VITALS: BP 158/79; TEMP 97.8; O2SAT 98
== END 2022-09-09 13:46 | disposition home or self-care (01) ==
LOC: ER 13:18
DX: I10 Essential (primary) hypertension (principal)
CPT/HCPCS: 99282